=== PATIENT | female | born 1950 | race Caucasian/White ===

== ENCOUNTER 2016-12-30 10:53 | Inpatient (IN) ==
--- NOTE | 2016-12-29 20:39 | Discharge Summary ---
<Lore Petersen - Last Filed: 12/29/16 20:36> Date of Encounter: 12/29/16 - Discharge Diagnosis (1) Aseptic loosening of prosthetic knee Priority: Primary Status: Acute Qualifiers: Encounter type: initial encounter Qualified Code(s): T84.038A - Mechanical loosening of other internal prosthetic joint, initial encounter; Z96.659 - Presence of unspecified artificial knee joint (2) Tobacco abuse Priority: Secondary Status: Chronic (3) COPD (chronic obstructive pulmonary disease) Priority: Secondary Status: Chronic Qualifiers: COPD type: unspecified COPD Qualified Code(s): J44.9 - Chronic obstructive pulmonary disease, unspecified (4) History of GI bleed Priority: Secondary Status: Chronic (5) Atrial fibrillation Priority: Secondary Status: Chronic Qualifiers: Atrial fibrillation type: unspecified Qualified Code(s): I48.91 - Unspecified atrial fibrillation (6) Hypertension Priority: Secondary Status: Chronic Qualifiers: Hypertension type: essential hypertension Qualified Code(s): I10 - Essential (primary) hypertension (7) Diabetes mellitus Priority: Secondary Status: Chronic Qualifiers: Diabetes mellitus type: type 2 Diabetes mellitus complication status: with unspecified complications Diabetes mellitus parts counterman insulin use: unspecified senior care insulin use status Qualified Code(s): E11.8 - Type 2 diabetes mellitus with unspecified complications - Discharge Medications Home Medications: Albuterol Sulfate [Albuterol Inhaler] 2 puff IH Q4HR PRN 09/18/15 [History] Carvedilol [Coreg] 25 mg PO BID 09/18/15 [History] ClonazePAM [Klonopin] 0.5 mg PO BID PRN 09/18/15 [History] GlyBURIDE 5 mg PO DAILY 09/18/15 [History] Hydrochlorothiazide 12.5 mg PO DAILY 09/18/15 [History] Losartan Potassium [Cozaar] 50 mg PO HS 09/18/15 [History] Aspirin Enteric Coated [Aspirin EC] 325 mg PO DAILY #21 tablet. 12/29/16 [Rx] OxyCODONE Immed Rel [Roxicodone 5 MG] 5 - 10 mg PO Q6HR PRN #40 tablet 12/29/16 [Rx] Aspirin 325 mg PO DAILY 12/30/16 [History] Diltiazem CD (24hr) [Cardizem CD] 120 mg PO DAILY 12/30/16 [History] Allergies/Adverse Reactions: Allergies Tetanus Vaccines and Toxoid [Tetanus Vaccines & Toxoid] Allergy (Mild, Verified 12/30/16 11:19) SWELLING ciprofloxacin [From Cipro] Allergy (Verified 12/30/16 11:19) Rash Penicillins [PCN] Allergy (Verified 12/30/16 11:19) Rash Tetracycline Adverse Reaction (Mild, Verified 12/30/16 11:19) YEAST INFECTION Primary care physician: Michael John Jr, MD - Patient Status Disposition: Home, Self-Care Condition: Good - Discharge Instructions Follow Up With: Lore Petersen PAC [Physician Social Work Therapist] - 01/08/17 1:00 pm Michael John Jr, MD [Primary Care Provider] - - Hospital Course Hospital course: Ms. Flannery is a 66 year old female - Time Spent with Patient Total time spent providing and/or coordinating discharge services: <Shimon Kenney - Last Filed: 01/01/17 07:58> Date of Encounter: 01/01/17 Time of Encounter: 07:58 - Discharge Diagnosis (1) Tobacco abuse Priority: Secondary Status: Chronic (2) COPD (chronic obstructive pulmonary disease) Priority: Secondary Status: Chronic Qualifiers: COPD type: unspecified COPD Qualified Code(s): J44.9 - Chronic obstructive pulmonary disease, unspecified (3) History of GI bleed Priority: Secondary Status: Chronic (4) Atrial fibrillation Priority: Secondary Status: Chronic Qualifiers: Atrial fibrillation type: unspecified Qualified Code(s): I48.91 - Unspecified atrial fibrillation (5) Hypertension Priority: Secondary Status: Chronic Qualifiers: Hypertension type: essential hypertension Qualified Code(s): I10 - Essential (primary) hypertension (6) Diabetes mellitus Priority: Secondary Status: Chronic Qualifiers: Diabetes mellitus type: type 2 Diabetes mellitus complication status: with unspecified complications Diabetes mellitus senior care insulin use: unspecified senior care insulin use status Qualified Code(s): E11.8 - Type 2 diabetes mellitus with unspecified complications (7) Aseptic loosening of prosthetic knee Priority: Primary Status: Acute Qualifiers: Encounter type: subsequent encounter Qualified Code(s): T84.038D - Mechanical loosening of other internal prosthetic joint, subsequent encounter; Z96.659 - Presence of unspecified artificial knee joint Primary care physician: Michael John Jr, MD - Patient Status Functional capacity at discharge: uses cane/walker Overall status at discharge: patient is progressing back to baseline - Hospital Course Hospital course: Ms. Flannery is a 66 year old female The patient had an uneventful postoperative course. They received antibiotics and physical therapy and were discharged in stable condition. There will follow -up in the office in 2 weeks. Aspirin DVT prophylaxis - Time Spent with Patient Total time spent providing and/or coordinating discharge services:
[2016-12-30] MEDS ORDERED: CeFAZolin Pre 2,000 MG/100 ML 2,000 MG/100 ML BAG IVPB ONE (11:08)
[2016-12-30] MEDS ORDERED: Albuterol 2.5 MG/3 ML NEBULIZER IH ONE (11:08)
[2016-12-30] MEDS ORDERED: Ringers Solution, Lactated 1,000 ML IVC SCH (11:15)
--- NOTE | 2016-12-30 11:32 | History & Physical Report ---
Date of Encounter: 12/30/16 Time of Encounter: 11:32 24 Hour HP Update - Instructions Instructions: If the History and Physical is less than 30 days old and was completed prior to A.M. admission and or procedure and has NOT been updated on calendar day of procedure please complete this update prior to performing procedure. - Update Patient reports changes in Medical Condition: No Changes in examination, assessment, or condition: No Changes in Medication: No Preop tests/diagnostics Reviewed: Yes Surgery Remains Indicated: Yes Consent for Planned Operative Procedure(s) Verified: Yes - Pre-Operative Checklist Preoperative Checklist Indicated: No Prophylactic Antibiotic Ordered: Yes Is VTE Prophylaxis Indicated?: Yes
--- NOTE | 2016-12-30 12:08 | Anesthesia Evaluation PreOp ---
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 12/29/16 [Rx] OxyCODONE Immed Rel [Roxicodone 5 MG] 5 - 10 mg PO Q6HR PRN #40 tablet 12/29/16 [Rx] Aspirin 325 mg PO DAILY 12/30/16 [History] Diltiazem CD (24hr) [Cardizem CD] 120 mg PO DAILY 12/30/16 [History] Allergies Tetanus Vaccines and Toxoid [Tetanus Vaccines & Toxoid] Allergy (Mild, Verified 12/30/16 11:19) SWELLING ciprofloxacin [From Cipro] Allergy (Verified 12/30/16 11:19) Rash Penicillins [PCN] Allergy (Verified 12/30/16 11:19) Rash Tetracycline Adverse Reaction (Mild, Verified 12/30/16 11:19) YEAST INFECTION - Meds/Allergy Pre-op Review Medications Reviewed: Yes Allergies Reviewed: Yes Beta Blockers on Current Med List: Yes If Beta Blockers taken, Date/Time (Last Dose taken): 12-30-16 coreg 7:30 Anesthesia Results - Labs Laboratory Tests 09/13/15 12/16/16 12/16/16 14:00 10:29 10:29 WBC 9.7 Hgb 15.0 Hct 43.9 Plt Count 202 PT 11.0 INR 1.0 APTT 30.3 Sodium Potassium 4.6 H Chloride Carbon Dioxide BUN Creatinine Est GFR ( Amer) Est GFR (Non-Af Amer) BUN/Creatinine Ratio Est Mean Plasma Glucose Hemoglobin A1c 12/16/16 12/16/16 10:29 10:29 WBC Hgb Hct Plt Count PT INR APTT Sodium 137 Potassium Chloride 103 Carbon Dioxide 26 BUN 13 Creatinine 0.87 Est GFR ( Amer) > 60 Est GFR (Non-Af Amer) > 60 BUN/Creatinine Ratio 15 Est Mean Plasma Glucose 183 Hemoglobin A1c 8.0 H - Imaging EKG: report reviewed, image reviewed (SR with occ PVC's) Additional studies: TTE: LVEF 60-65% mild conc LVH mild LV diastolic dysfunction normal RV no sign valvular disease no pulm htn trivial pericardial effusion exercise nuclear stress: perfusion imaging negative for ischemia or infarct exercise ECG negative for ischemia rare PVC's during stress patient had no CP during stress exercise capacity was fair Gated EF > 70% no TID Anesthesia Exam Last Vital Signs Temp 98 F 12/30/16 11:24 Pulse 61 12/30/16 11:24 Resp 16 12/30/16 11:24 BP 138/66 12/30/16 11:24 Pulse Ox 95 12/30/16 11:24 Weight: 81 kg NPO (# of Hours): >> 8 hrs - HEENT Pupil (Motor): Pupils equal, EOMI Mallampati: I Teeth: Edentulous Denture Type: Upper: Complete, Lower: Complete Oral Opening: Greater than 3 - 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
[2016-12-30] MEDS ORDERED: *HR* Midazolam HCl 2 MG/2 ML VIAL ONE (13:28)
[2016-12-30] MEDS ORDERED: *HR* Propofol 200 MG/20 ML VIAL IVP ONE (13:28)
[2016-12-30] MEDS ORDERED: Dexamethasone 4 MG/ML VIAL ONE (13:29)
[2016-12-30] MEDS ORDERED: Ondansetron 4 MG/2 ML VIAL ONE (13:29)
[2016-12-30] MEDS ORDERED: Lidocaine -MPF 2% 2 ML VIAL ONE (13:29)
[2016-12-30] MEDS ORDERED: Ondansetron 4 MG/2 ML VIAL IVP ONE (13:33)
[2016-12-30] MEDS ORDERED: *HR* Promethazine 25 MG/ML VIAL IVP PRN (13:33)
[2016-12-30] MEDS ORDERED: *HR* Labetalol 100 MG/20 ML MDV IVP PRN (13:33)
[2016-12-30] MEDS ORDERED: Tetracaine/PF 20 MG/2 ML AMPUL SPINA ONE (14:02)
[2016-12-30] MEDS ORDERED: Bupivacaine/Clonidine Syringe 1 EACH SYRINGE ONE (14:03)
[2016-12-30] MEDS ORDERED: *HR* FentaNYL (PF) 100 MCG/2 ML VIAL ONE (14:29)
--- NOTE | 2016-12-30 14:51 | Anesthesia Procedures ---
Date of Encounter: 12/30/16 Time of Encounter: 14:49 Procedures: Anesthesia - Nerve Block Procedure Date: 12/30/16 Time: 14:49 Allergies/Adv Reactions: PCN, tetracycline, cipro, tetanus Pre-op Diagnosis: R knee aseptic loosening Surgical Procedure: R TKA, revision tibia Checklist: Correct Patient Identifier, Correct procedure, History checked Correct side: Right Blood Thinner: No Monitor Applied: EKG, BP, Pulse Oximetry Supplemental Oxygen via Nasal Cannula (L/min): 3 Sedation: Versed (mg): 2 Indication: Primary Anesthesia (requested by Dr. Kenney) Pre-op Neuro Deficits: No Block Type: Femoral, Other (i-PACK block) Catheter placed: No Sterile Technique: Yes Ultrasound used: Yes Anatomy identified: Yes Visual spread of Local: Yes Neuro Stimulation: Yes Nerve Stimulator Range: 0.2 - 0.4 mA Blood on Needle Aspiration: No Smooth Injection of Local: Yes Pain with Injection of Local: No Prep: Chlorhexadine Needle: 22 x 50 mm Stimuplex (used for femoral n. block), 21 x 100 mm Stimuplex (used for iPACK block) Local: 0.25% Bupivicaine w/Clonidine 20 mcg/cc (20mL), Tetracaine (2mL-1%), Other (30mL 0.5% bupivicaine, 8mg dexamethasone) Number of Attempts: 1 Complications: None/effective block Vitals: 3 Vital Signs Time pre-procedure post-procedure BP 138/66 136/96 Pulse 61 56 Resp 16 12 O2 Sat 95 96
--- NOTE | 2016-12-30 15:35 | Orthopedic Operative Note ---
Date of procedure: 12/30/16 Pre-op diagnosis: Aseptic loosening tibial component Post-op diagnosis: same Procedure: Procedure: Right revision tibial component Estimated blood loss: 200 cc Hardware: Arthrex tibia size 3, 14 x 100 stem, 18 PS Susi Exam Under anesthesia: Full flexion full extension well-healed incision no swelling or erythema no varus valgus instability Procedural Notes: Loosening of tibial component Operative procedure: The patient was brought to the operating room and placed on the operating room table. After general anesthesia was administered the operative knee was examined. Findings were noted in the exam under anesthesia. The operative extremity was prepped and draped in sterile surgical fashion. The patient received IV antibiotics prior to skin incision. A standard midline incision was made centered over the patella. The incision was made through the skin and subcutaneous tissue through the old incision. A medial parapatellar tendon approach was performed. Care was taken to preserve tissue along the medial aspect of the patella. And to protect the patella tendon. The deep MCL was released off the medial tibia. The infra patella fat pad was excised. Cultures were obtained as well as Gram stain. 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 An extensive synovectomy was performed. The knee was brought into flexion the tibial poly-was removed. The femur was well fixed. Attention was then turned to the tibial component. The tibial component was loose and removed with an osteotome without any bone loss. Tibia was recut just below the level of the cement mantle. The tibia was prepared first sized to a 3 reamed to a 14 x 100 stem. The finishing punch was seated. Trial had good fit and fixation. Trial reduction revealed full extension and full flexion no varus valgus instability with an 18 PS Susi. Trial components removed knee sat for 2 minutes with a Betadine saline solution. It was irrigated out with pulse irrigation. Components were assembled on the back table. The tibia cemented. The 18 PS Susi was seated and secure. The had full flexion and full extension and excellent patella tracking no varus valgus instability. After the cement hardened the knee was irrigated out again. The knee was taken through a range of motion had excellent patella tracking. The extensor mechanism was closed with a running #2 Fiberwire suture and a running #2 PDS suture. The deep tissue was irrigated and closed deep with #1 PDS suture superficially with 0 PDS suture. The skin was closed with skin caty. The patient was placed in a sterile dressing and postoperative brace. They were extubated and transferred to recovery room in stable condition. Anesthesia: ERIKA Surgeon: Shimon Kenney Care Transitions Manager: Lore Petersen Condition: stable Disposition: PACU
[2016-12-30] MEDS: *HR* HYDROmorphone (PF) 1 MG/ML SYRINGE IVP PRN ×3 (16:08→16:20)
[2016-12-30 16:37] LABS: Hematocrit 38.3 % (35.3-44.9)
--- NOTE | 2016-12-30 16:38 | Anesthesia Evaluation Post Op ---
Date of Encounter: 12/30/16 Time of Encounter: 16:37 - Vital Signs Vital Signs: Last Vital Signs Temp 97.6 F 12/30/16 16:29 Pulse 59 12/30/16 16:29 Resp 16 12/30/16 16:29 BP 159/71 12/30/16 16:29 Pulse Ox 97 12/30/16 16:29 - Lungs Lungs: Clear Ascult./Percussion - Airway Airway: Non-obstructed - Cardiovascular Regular Rate - Mental Status Mental Status: Alert & Oriented, Answers Appropriately - Pain Pain Scale: 2 - Nausea Vomiting Nausea Vomiting: Not Present - Hydration Hydration: Ice chips - Discharge PostOp Status: Transfer Patient to floor
[2016-12-30] MEDS ORDERED: clonazePAM 0.5 MG TABLET PO PRN (16:53)
[2016-12-30] MEDS ORDERED: MOM Conc 10 ML UD.LIQ PO PRN (16:53)
[2016-12-30] MEDS ORDERED: D5% in Water 1,000 ML IVC PRN (16:53)
[2016-12-30] MEDS ORDERED: *HR* Dextrose 50 % in Water (Syg) 50 ML SYRINGE IVP PRN (16:53)
[2016-12-30] MEDS ORDERED: Temazepam 15 MG CAPSULE PO PRN (16:53)
[2016-12-30] MEDS ORDERED: Sennosides 8.6 MG TABLET PO PRN (16:53)
[2016-12-30] MEDS ORDERED: *HR* OxyCODONE Immed Rel 5 MG TABLET PO PRN (16:53)
[2016-12-30] MEDS ORDERED: *HR* HYDROmorphone (PF) 1 MG/ML SYRINGE IVP PRN (16:53)
[2016-12-30] MEDS ORDERED: Naloxone 0.4 MG/ML INJ IVP PRN (16:53)
[2016-12-30] MEDS ORDERED: Dextrose Gel 15 GM PO PRN ×2 (16:53)
[2016-12-30] MEDS ORDERED: *HR* Enoxaparin 30 MG/0.3 ML SYRINGE SQ SCH (18:00)
[2016-12-30] MEDS: *HR* OxyCODONE Immed Rel 5 MG TABLET PO PRN (18:17)
[2016-12-30] MEDS: *HR* Enoxaparin 30 MG/0.3 ML SYRINGE SQ SCH (18:56)
[2016-12-30] MEDS: Insulin LISPRO 300 UNITS/3 ML VIAL SQ SCH (18:56)
[2016-12-30] MEDS: Ondansetron 4 MG/2 ML VIAL IVP PRN (20:22)
[2016-12-30] MEDS: Ringers Solution, Lactated 1,000 ML IVC SCH (20:27)
[2016-12-30] MEDS: Acetaminophen 325 MG TABLET PO PRN (20:28)
[2016-12-31] MEDS: Clindamycin 900 MG/50 ML 900 MG/50 ML IV.SOLN IVPB SCH ×2 (00:12→06:40)
[2016-12-31 05:12] LABS: Hematocrit 39.2 % (35.3-44.9); Hemoglobin 13.5 g/dL (11.5-15.4)
[2016-12-31 05:36] LABS: BUN/Creatinine Ratio 20 (6-26); Blood Urea Nitrogen 16 mg/dL (7-20); Calcium 8.8 mg/dL (8.6-10.8); Carbon Dioxide 25 mEq/L (19-29); Chloride 102 mEq/L (98-109); Glucose 250 mg/dL (70-99); Osmolality,Calculated 292 (280-300); Sodium 136 mEq/L (136-145); eGFR For African Americans > 60 (> 60); eGFR For Non-African Americans > 60 (> 60)
[2016-12-31] MEDS: *HR* Enoxaparin 30 MG/0.3 ML SYRINGE SQ SCH ×2 (05:43→16:30)
[2016-12-31] MEDS: Ondansetron 4 MG/2 ML VIAL IVP PRN (05:43)
[2016-12-31] MEDS: *HR* OxyCODONE Immed Rel 5 MG TABLET PO PRN ×2 (05:44→20:28)
--- NOTE | 2016-12-31 06:38 | Orthopedics Progress Note ---
Date of Encounter: 12/31/16 Time of Encounter: 06:38 - Assessment and Plan (1) Tobacco abuse Current Visit: No Status: Chronic (2) COPD (chronic obstructive pulmonary disease) Current Visit: No Status: Chronic Qualifiers: COPD type: unspecified COPD Qualified Code(s): J44.9 - Chronic obstructive pulmonary disease, unspecified (3) History of GI bleed Current Visit: No Status: Chronic (4) Atrial fibrillation Current Visit: No Status: Chronic Qualifiers: Atrial fibrillation type: unspecified Qualified Code(s): I48.91 - Unspecified atrial fibrillation (5) Hypertension Current Visit: No Status: Chronic Qualifiers: Hypertension type: essential hypertension Qualified Code(s): I10 - Essential (primary) hypertension (6) Diabetes mellitus Current Visit: No Status: Chronic Qualifiers: Diabetes mellitus type: type 2 Diabetes mellitus complication status: with unspecified complications 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 Afebrile vital signs stable. Operative extremity: Neurovascularly intact Dressing clean dry and intact Calves nontender Assessment and plan: Continue with postoperative care Hematocrit 39 Objective Vital signs: Vital Signs Temp Pulse Resp BP Pulse Ox 12/31/16 03:44 97.5 F L 71 18 157/79 96 12/31/16 00:22 97.5 F L 70 16 153/76 98 12/30/16 19:00 97.4 F L 61 13 138/64 98 12/30/16 17:51 99 12/30/16 17:50 97.6 F 59 12 133/73 99 12/30/16 17:29 97.7 F 93 18 159/89 94 12/30/16 16:50 97.6 F 62 14 154/71 98 12/30/16 16:39 97.6 F 63 16 148/74 98 12/30/16 16:29 97.6 F 59 16 159/71 97 04/17/17 16:19 65 16 146/66 96 12/30/16 16:09 74 16 169/70 98 12/30/16 15:59 97.5 F L 74 16 143/77 99 12/30/16 14:44 68 16 136/96 99 12/30/16 14:20 67 16 157/69 99 12/30/16 11:24 98 F 61 16 138/66 95 Intake and Output 12/30/16 12/30/16 12/31/16 15:59 23:59 07:59 Intake Total 240 / 240 Output Total 250 / 250 550 / 550 Balance -10 / -10 -550 / -550 Intake: Oral 240 / 240 Output: Urine 150 / 150 550 / 550 Estimated Blood Loss 100 / 100 Other: Weight 80.739 kg Blood Glucose* 196 222 - Labs CBC & BMP: 12/31/16 04:24 12/31/16 04:24 Labs: Abnormal lab results Glucose 250 mg/dL (70-99) H 12/31/16 04:24 POC Glucose 222 (58-89) H 12/30/16 20:45 - VTE Documentation of Mechanical Device: Venous foot pump, device Consult Discharge Plan - Plan Referrals: Michael John Jr, MD [Primary Care Provider] -
[2016-12-31] MEDS: Diltiazem CD (24hr) 120 MG CAPSULE PO SCH (07:55)
[2016-12-31] MEDS: hydroCHLOROthiazide 25 MG TABLET PO SCH (07:55)
[2016-12-31] MEDS: *HR* GlyBURIDE 2.5 MG TABLET PO SCH (07:55)
[2016-12-31] MEDS: Aspirin 325 MG TABLET PO SCH (07:55)
[2016-12-31] MEDS: Insulin LISPRO 300 UNITS/3 ML VIAL SQ SCH ×3 (07:55→16:30)
[2016-12-31] MEDS ORDERED: Scopolamine Patch 1.5 MG PATCH.TD72 TD ONE (10:32)
[2016-12-31] MEDS: Ringers Solution, Lactated 1,000 ML IVC SCH (10:37)
[2016-12-31] MEDS: Acetaminophen 325 MG TABLET PO PRN (22:22)
[2017-01-01] MEDS: *HR* OxyCODONE Immed Rel 5 MG TABLET PO PRN ×2 (04:11→09:16)
[2017-01-01] MEDS: *HR* Enoxaparin 30 MG/0.3 ML SYRINGE SQ SCH (05:13)
[2017-01-01 06:24] LABS: Hematocrit 31.9 % (35.3-44.9); Hemoglobin 11.2 g/dL (11.5-15.4)
[2017-01-01 06:38] LABS: BUN/Creatinine Ratio 20 (6-26); Blood Urea Nitrogen 17 mg/dL (7-20); Calcium 8.9 mg/dL (8.6-10.8); Carbon Dioxide 28 mEq/L (19-29); Chloride 102 mEq/L (98-109); Glucose 228 mg/dL (70-99); Osmolality,Calculated 291 (280-300); Sodium 136 mEq/L (136-145); eGFR For African Americans > 60 (> 60); eGFR For Non-African Americans > 60 (> 60)
[2017-01-01] MEDS: Aspirin 325 MG TABLET PO SCH (07:48)
[2017-01-01] MEDS: *HR* GlyBURIDE 2.5 MG TABLET PO SCH (07:49)
[2017-01-01] MEDS: hydroCHLOROthiazide 25 MG TABLET PO SCH (07:50)
[2017-01-01] MEDS: Insulin LISPRO 300 UNITS/3 ML VIAL SQ SCH (07:50)
[2017-01-01] MEDS: Diltiazem CD (24hr) 120 MG CAPSULE PO SCH (07:50)
--- NOTE | 2017-01-01 07:59 | Orthopedics Progress Note ---
Date of Encounter: 01/01/17 Time of Encounter: 07:59 - Assessment and Plan (1) Tobacco abuse Current Visit: No Status: Chronic (2) COPD (chronic obstructive pulmonary disease) Current Visit: No Status: Chronic Qualifiers: COPD type: unspecified COPD Qualified Code(s): J44.9 - Chronic obstructive pulmonary disease, unspecified (3) History of GI bleed Current Visit: No Status: Chronic (4) Atrial fibrillation Current Visit: No Status: Chronic Qualifiers: Atrial fibrillation type: unspecified Qualified Code(s): I48.91 - Unspecified atrial fibrillation (5) Hypertension Current Visit: No Status: Chronic Qualifiers: Hypertension type: essential hypertension Qualified Code(s): I10 - Essential (primary) hypertension (6) Diabetes mellitus Current Visit: No Status: Chronic Qualifiers: Diabetes mellitus type: type 2 Diabetes mellitus complication status: with unspecified complications Diabetes mellitus technician terminal and repeater insulin use: unspecified technician terminal and repeater insulin use status Qualified Code(s): E11.8 - Type 2 diabetes mellitus with unspecified complications (7) Aseptic loosening of prosthetic knee Current Visit: Yes Status: Acute Qualifiers: Encounter type: subsequent encounter Qualified Code(s): T84.038D - Mechanical loosening of other internal prosthetic joint, subsequent encounter; Z96.659 - Presence of unspecified artificial knee joint Subjective Interval history: Patient was seen this morning doing well without complaints. Afebrile vital signs stable. Operative extremity: Neurovascularly intact Dressing clean dry and intact Calves nontender Assessment and plan: Continue with postoperative care Hematocrit 31 discharge today Objective Vital signs: Vital Signs Temp Pulse Resp BP Pulse Ox 01/01/17 07:18 98.0 F 68 14 124/56 97 01/01/17 03:34 97.8 F 71 16 139/70 97 01/01/17 00:19 97.5 F L 75 16 124/54 95 12/31/16 18:56 98.4 F 74 16 146/72 98 12/31/16 15:58 97.7 F 73 16 143/69 99 12/31/16 10:41 97.9 F 66 16 118/68 95 Intake and Output 12/31/16 12/31/16 01/01/17 15:59 23:59 07:59 Intake Total 1000 / 1000 Balance 1000 / 1000 Intake: IV Fluids 1000 / 1000 Lactated Ringers 1,000 ML 1000 / 1000 @ 75 mls/hr IVC .[id number] ANGELIC Rx#:[id number] Other: Blood Glucose* 191 248 240 - Labs CBC & BMP: 01/01/17 06:04 01/01/17 06:04 Labs: Abnormal lab results Hgb 11.2 g/dL (11.5-15.4) L D 01/01/17 06:04 Hct 31.9 % (35.3-44.9) L 01/01/17 06:04 Glucose 228 mg/dL (70-99) H 01/01/17 06:04 POC Glucose 191 (58-89) H 12/31/16 16:00 - VTE Documentation of Mechanical Device: Venous foot pump, device Consult Discharge Plan - Plan Referrals: Lore Petersen, PAC [Physician Pepper Picker] - 01/08/17 1:00 pm Michael John Jr, MD [Primary Care Provider] -
[2017-01-01 10:51] VITALS: BP 98/49
== END 2017-01-01 11:25 | disposition home or self-care (01) | DRG 468 ==
LOC: SAMDAY 10:53 → 3NENU 17:01
PROVIDERS: ADMIT Orthopaedic Surgery; ATTEND Orthopaedic Surgery